=== PATIENT | male | born 1995 ===

== ENCOUNTER 2021-02-01 14:31 | Emergency (ER) | payer MEDICAID ==
--- NOTE | 2021-02-01 15:14 | Event Note ---
ED Screening Note Date of service: 02/01/21 Time: 15:06 ED Screening Note: This initial assessment/diagnostic orders/clinical plan/treatment(s) is/are subject to change based on patients health status, clinical progression and re- assessment by fellow clinical providers in the ED. Further treatment and workup at subsequent clinical providers discretion. Patient/guardian urged not to elope from the ED as their condition may be serious if not clinically assessed and managed. Initial orders include:
--- NOTE | 2021-02-01 15:16 | Emergency Department Report ---
Chief Complaint: Urogenital-Male Stated Complaint: POSSIBLE UTI Time Seen by Provider: 02/01/21 15:14 - HPI History of Present Illness: 25-year-old male presents emergency department chief complaint of dysuria and concern about an STD. He reports some blood-tinged urine. He has had multiple unprotected sexual partners. He denies any penile discharge. Does report a bump in the groin. He denies any associated fever, chills, night sweats, headache, dizziness, blurry vision, nausea,, diarrhea, chest pain, shortness of breath, weakness or any other associated symptoms. - ROS Review of Systems: See HPI - Exam Physical Exam: GENERAL APPEARANCE: Well-developed, well-nourished, no acute distress HEENT: Normocephalic and atraumatic. No scleral icterus. Pupils are equal, round, and reactive to light and accommodation. No conjunctival injection is noted. Oropharynx is clear. Mouth revealed good dentition, no lesions. Tympanic membranes are clear. NECK: Supple. Trachea is midline. No evidence of thyroid enlargement. No lymphadenopathy or tenderness. CHEST: Symmetric. Nontender to palpation. LUNGS: Breath sounds are equal and clear bilaterally. No wheezes, rhonchi, or rales. HEART: Regular rate and rhythm with normal S1 and S2. No murmurs, gallops, or rubs. BREASTS: Symmetrical. No skin or nipple retractions. No nipple discharges or masses. ABDOMEN: Soft, flat, and benign. No mass, tenderness, guarding, or rebound. No organomegaly or hernia. Bowel sounds are present. No CVA tenderness or flank mass. GENITOURINARY: There is a mobile tender lymph node in the right inguinal chain. Patient deferred exam otherwise. No CVA tenderness. RECTAL: Deferred EXTREMITIES: No cyanosis, clubbing, or edema. No lower extreme edema, negative Homans sign bilaterally NEUROLOGIC: No focal sensory or motor deficits are noted. Gait is normal. Cranial nerves II through XII are intact. Deep tendon reflexes are intact. PSYCHIATRIC: The patient is awake, alert, and oriented x3. Recent and remote memory is intact. Appropriate mood and affect. SKIN: Warm, dry, and well perfused. Good turgor. No lesions, nodules or rashes are noted. No onychomycosis. LYMPHATICS: No cervical, axillary, or groin adenopathy is noted. MSE screening note: Focused history and physical exam performed. Due to findings the following was ordered:none Patient is nontoxic in no acute distress. Vital signs are stable. Patient was most concerned about a possible STD exposure. Educated him about the importance of following up with the health department for full STI work-up. This time the patient decided to leave after MSE exam. ED Disposition for MSE Clinical Impression: Urethritis Disposition: MED SCREENING EXAM-LEFT Is pt being admited?: No Condition: Stable Instructions: Urethritis, Adult Forms: STI Treatment and Prevention Time of Disposition: 15:16
== END 2021-02-01 16:05 | disposition left against medical advice (07) ==
LOC: ED 14:31
DX: N34.2 Other urethritis (principal); Z53.21 Procedure and treatment not carried out due to patient leaving prior to being seen by health care provider